=== PATIENT | female | born 1990 | race African-American/Black ===

== ENCOUNTER 2016-07-11 00:43 | Emergency (ER) | payer MEDICAID ==
[~2016-07-11] VITALS: Ht 165.1 cm; Wt 56.7 kg
[2016-07-11 00:57] VITALS: BP 107/60
[2016-07-11 01:33] LABS: Basophils # (auto) 0 uL; Basophils % (auto) 0.1 % (0.0-2.0); Eosinophils # (auto) 0.1 uL; Eosinophils % (auto) 0.8 % (0.0-7.0); Lymphocytes # (auto) 1.7 uL; Lymphocytes % (auto) 12.1 % (10.0-50.0); Mean Corpuscular Hemoglobin 28.9 pg (28.0-32.0); Mean Corpuscular Hgb Conc. 31.5 g/dL (32.0-36.0); Mean Corpuscular Volume 91.8 fL (80.0-100.0); Mean Platelet Volume 10.6 fL (7.4-10.4); Monocytes # (auto) 0.7 uL; Monocytes % (auto) 5.1 % (0.0-12.0); Neutrophils # (auto) 11.7 uL; Neutrophils % (auto) 81.9 % (37.0-80.0); Platelet Count (auto) 282 10^3/uL (140-450); Red Cell Distribution Width 12.9 % (11.6-16.0); White Blood Cell 14.3 10^3/uL (4.4-10.8)
[2016-07-11 01:35] LABS: Urine Bilirubin Negative (Negative); Urine Blood Negative /uL (Negative); Urine Color Yellow (Yellow); Urine Glucose Normal (Normal); Urine Ketone Negative (Negative); Urine Mucus FEW (None Seen); Urine Nitrite Negative (Negative); Urine RBC <1 /hpf (0 - 4); Urine Squamous Epithelial Cell MOD /hpf (<5); Urine Urobilinogen Normal (Negative); Urine pH 6.5 (5.0-8.0)
[2016-07-11 02:05] LABS: Albumin 3.7 g/dL (3.4-5.0); BUN/Creatinine Ratio 15.4; Calcium 8.8 mg/dL (8.5-10.1); Magnesium 2.2 mg/dL (1.6-2.6); Potassium 3.6 mmol/L (3.5-5.1)
[2016-07-11 02:08] LABS: Bilirubin, Total 0.5 mg/dL (0.2-1.0); Total Protein 7.1 g/dL (6.4-8.2)
== END 2016-07-11 04:40 | disposition left against medical advice (07) ==
LOC: ER 00:45
DX: R10.30 Lower abdominal pain, unspecified (principal); Z53.21 Procedure and treatment not carried out due to patient leaving prior to being seen by health care provider
CPT/HCPCS: 36415; 80053; 81001; 83690; 83735; 84702; 85025

== ENCOUNTER 2017-06-30 01:07 | Emergency (ER) | payer MEDICAID ==
[~2017-06-30] VITALS: Ht 162.6 cm; Wt 68.0 kg
[2017-06-30 01:44] VITALS: BP 114/61
[2017-06-30] MEDS ORDERED: LIDOCAINE 1% HCL (LOCAL ANESTH.) INJ 20ML MDV IJ ONE (02:30)
[2017-06-30] MEDS ORDERED: BACITRACIN TOP OINT 1 UD PKG TOP ONE (02:30)
== END 2017-06-30 03:36 | disposition home or self-care (01) ==
LOC: ER 01:08
DX: S51.811A Laceration without foreign body of right forearm, initial encounter (principal); J45.909 Unspecified asthma, uncomplicated; W45.8XXA Other foreign body or object entering through skin, initial encounter; Y93.89 Activity, other specified; Y92.89 Other specified places as the place of occurrence of the external cause; Y99.8 Other external cause status
CPT/HCPCS: 12002; 99283; J2001

== ENCOUNTER 2018-03-07 19:16 | Emergency (ER) | payer MEDICAID ==
[~2018-03-07] VITALS: Ht 165.1 cm; Wt 68.0 kg
[2018-03-07 19:29] VITALS: BP 103/60
[2018-03-07] MEDS ORDERED: ACETAMINOPHEN 500 MG TAB PO ONE (23:45)
== END 2018-03-08 00:07 | disposition home or self-care (01) ==
LOC: ER 19:18
DX: O9A.211 Injury, poisoning and certain other consequences of external causes complicating pregnancy, first trimester (principal); O41.8X10 Other specified disorders of amniotic fluid and membranes, first trimester, not applicable or unspecified; O46.8X1 Other antepartum hemorrhage, first trimester; M62.838 Other muscle spasm; O9A.311 Physical abuse complicating pregnancy, first trimester; Z3A.01 Less than 8 weeks gestation of pregnancy; Y08.89XA Assault by other specified means, initial encounter; Y93.89 Activity, other specified; Y99.8 Other external cause status; Y92.89 Other specified places as the place of occurrence of the external cause
CPT/HCPCS: 36415; 76801; 84702

== ENCOUNTER 2018-04-28 20:38 | Emergency (ER) | payer MEDICAID ==
[~2018-04-28] VITALS: Ht 165.1 cm; Wt 65.8 kg
[2018-04-28 20:47] VITALS: BP 122/68
[2018-04-28 21:33] LABS: Basophils # (auto) 0.2 uL; Basophils % (auto) 1.2 % (0.0-2.0); Eosinophils # (auto) 0.1 uL; Eosinophils % (auto) 0.5 % (0.0-7.0); Hematocrit 42.3 % (36.0-46.0); Lymphocytes # (auto) 1.1 uL; Lymphocytes % (auto) 7.7 % (10.0-50.0); Mean Corpuscular Hemoglobin 29.9 pg (28.0-32.0); Mean Corpuscular Hgb Conc. 33.1 g/dL (32.0-36.0); Mean Corpuscular Volume 90.3 fL (80.0-100.0); Monocytes # (auto) 0.6 uL; Monocytes % (auto) 4.2 % (0.0-12.0); Neutrophils # (auto) 11.8 uL; Neutrophils % (auto) 86.4 % (37.0-80.0); Platelet Count (auto) 268 10^3/uL (140-450); Red Blood Cells 4.68 10^6/uL (4.0-5.20); Red Cell Distribution Width 13.1 % (11.8-14.3); White Blood Cell 13.7 10^3/uL (4.4-10.8)
[2018-04-28 21:46] LABS: Albumin 3.7 g/dL (3.4-5.0); Calcium 9.1 mg/dL (8.5-10.1); Potassium 3.5 mmol/L (3.5-5.1)
[2018-04-28 21:49] LABS: BUN/Creatinine Ratio 12.3; Bilirubin, Total 0.7 mg/dL (0.2-1.0); Total Protein 7.4 g/dL (6.4-8.2)
== END 2018-04-29 01:10 | disposition left against medical advice (07) ==
LOC: EDBD 20:38 → ER 20:50
DX: R11.2 Nausea with vomiting, unspecified (principal); Z53.21 Procedure and treatment not carried out due to patient leaving prior to being seen by health care provider
CPT/HCPCS: 36415; 80053; 85025

== ENCOUNTER 2018-06-08 21:56 | Observation (INO) | payer MEDICAID | END 2018-06-09 01:00 | disposition home or self-care (01) | DRG 566 | LOC: LDRP 21:56 | PROVIDERS: ADMIT Specialist; ATTEND Specialist | DX: O26.892 Other specified pregnancy related conditions, second trimester (principal); R10.9 Unspecified abdominal pain; X58.XXXA Exposure to other specified factors, initial encounter; Y04.0XXA Assault by unarmed brawl or fight, initial encounter; Y92.89 Other specified places as the place of occurrence of the external cause; Y99.8 Other external cause status; Z3A.20 20 weeks gestation of pregnancy | CPT/HCPCS: 59025; 76805; 81002; G0378 ==

== ENCOUNTER 2019-12-02 22:08 | Emergency (ER) | payer MEDICAID ==
[~2019-12-02] VITALS: Ht 165.1 cm; Wt 62.6 kg
[2019-12-02 22:29] VITALS: BP 96/68
[2019-12-02 22:54] LABS: Basophils # (auto) 0 10 ^3/uL (0-0.2); Basophils % (auto) 0.5 % (0.0-2.0); Eosinophils # (auto) 0.1 10 ^3/uL (0-0.8); Eosinophils % (auto) 1.8 % (0.0-7.0); Lymphocytes # (auto) 1.2 10 ^3/uL (0.4-5.4); Lymphocytes % (auto) 23.1 % (10.0-50.0); Mean Corpuscular Hemoglobin 29.6 pg (28.0-32.0); Mean Corpuscular Hgb Conc. 33.2 g/dL (32.0-36.0); Monocytes # (auto) 0.6 10 ^3/uL (0-1.3); Monocytes % (auto) 10.9 % (0.0-12.0); Neutrophils # (auto) 3.2 10 ^3/uL (1.6-8.6); Neutrophils % (auto) 63.7 % (37.0-80.0); Platelet Count (auto) 191 10^3/uL (140-450); Red Blood Cells 4.72 10^6/uL (4.0-5.20); White Blood Cell 5.1 10^3/uL (4.4-10.8)
[2019-12-02 23:05] LABS: Urine Bacteria NONE SEEN /hpf (None Seen); Urine Blood Negative /uL (Negative); Urine Mucus FEW (None Seen); Urine WBC 10 /hpf (0 - 5)
[2019-12-02 23:13] LABS: Albumin 3.8 g/dL (3.4-5.0); Calcium 8.3 mg/dL (8.5-10.1); Magnesium 2.4 mg/dL (1.6-2.6); Potassium 3.2 mmol/L (3.5-5.1)
[2019-12-02 23:16] LABS: BUN/Creatinine Ratio 16.7; Bilirubin, Total 0.3 mg/dL (0.2-1.0); Total Protein 7.2 g/dL (6.4-8.2)
[2019-12-03] MEDS ORDERED: cefTRIAXone SOD 1,000 MG VL IM ONE (00:30)
[2019-12-03] MEDS ORDERED: ONDANSETRON ODT 4 MG TAB PO ONE (00:30)
[2019-12-03] MEDS ORDERED: POTASSIUM CHL 20 Meq TABLET PO ONE (00:30)
[2019-12-03] MEDS ORDERED: ACETAMINOPHEN 325 MG TAB PO ONE (01:00)
== END 2019-12-03 02:02 | disposition home or self-care (01) ==
LOC: ER 22:08
DX: K52.9 Noninfective gastroenteritis and colitis, unspecified (principal); N39.0 Urinary tract infection, site not specified; E87.6 Hypokalemia; J45.909 Unspecified asthma, uncomplicated
CPT/HCPCS: 36415; 70450; 71045; 80053; 81001; 83735; 85025; 96372; 99285; J0696; Q0162

== ENCOUNTER 2021-12-16 00:07 | Emergency (ER) | payer MEDICAID ==
[2021-12-16 00:35] VITALS: BP 114/54
== END 2021-12-16 05:05 | disposition left against medical advice (07) ==
LOC: ER 00:07
DX: S61.211A Laceration without foreign body of left index finger without damage to nail, initial encounter (principal); Z53.21 Procedure and treatment not carried out due to patient leaving prior to being seen by health care provider; W26.8XXA Contact with other sharp object(s), not elsewhere classified, initial encounter; Y93.89 Activity, other specified; Y92.89 Other specified places as the place of occurrence of the external cause; Y99.8 Other external cause status

== ENCOUNTER 2022-07-16 01:38 | Emergency (ER) | payer MEDICAID ==
[~2022-07-16] VITALS: Ht 167.6 cm; Wt 72.5 kg
[2022-07-16 02:00] VITALS: BP 130/81
[2022-07-16] MEDS ORDERED: CYCL-837 PO (02:56)
[2022-07-16] MEDS ORDERED: IBUP600T27 PO (02:56)
== END 2022-07-16 03:52 | disposition home or self-care (01) ==
LOC: EDBD 01:38 → ER 01:38
DX: S01.21XA Laceration without foreign body of nose, initial encounter (principal); S01.82XA Laceration with foreign body of other part of head, initial encounter; J45.909 Unspecified asthma, uncomplicated; Z98.890 Other specified postprocedural states; Z91.018 Allergy to other foods; Y04.0XXA Assault by unarmed brawl or fight, initial encounter; Y93.89 Activity, other specified; Y92.511 Restaurant or cafe as the place of occurrence of the external cause; Y99.8 Other external cause status
CPT/HCPCS: 12011; 70450; 70486; 71250; 72125; 74176

== ENCOUNTER 2024-03-22 23:03 | Emergency (ER) | payer MEDICAID ==
[~2024-03-22] VITALS: Ht 165.1 cm; Wt 81.9 kg
[~2024-03-22 23:03] MED LIST: CYCL-837 PO; IBUP-1454 PO
[2024-03-22 23:18] VITALS: BP 113/67; PULSE 62; RESP 16; O2SAT 97
== END 2024-03-22 23:24 | disposition left against medical advice (07) ==
LOC: ER 23:03
DX: R51.9 Headache, unspecified (principal); R20.0 Anesthesia of skin; M54.2 Cervicalgia; R42 Dizziness and giddiness; Z53.21 Procedure and treatment not carried out due to patient leaving prior to being seen by health care provider
CPT/HCPCS: 93005

== ENCOUNTER 2025-02-27 20:40 | Emergency (ER) | payer MEDICAID ==
[~2025-02-27] VITALS: Ht 165.1 cm; Wt 81.7 kg
[2025-02-27 20:52] VITALS: BP 113/64; PULSE 63; RESP 16; TEMP 99; O2SAT 100
--- NOTE | 2025-02-27 21:23 | ED.PDOC ---
ANIMAL NURSE HPI Comments 34-year-old female who came to ER for vaginal bleeding. Patient is a , approximately 6 weeks . States she started having vaginal bleeding and abdominal cramping yesterday, progressively worsening today. 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[employer]IC History: Ectopic 6 Para 3 Family History Family History: Reviewed,noncontributory to illness Social History Smoker: Non-Smoker Alcohol: Occasionally Drugs: Denies Drug Use Lives In: Home Constitutional: denies: chills, diaphoresis, fatigue, fever, malaise, sweats, weakness, others EENTM: denies: blurred vision, double vision, ear bleeding, ear discharge, ear drainage, ear pain, ear ringing, eye pain, eye redness, hearing loss, mouth pain, mouth swelling, nasal discharge, nose bleeding, nose congestion, nose pain, photophobia, tearing, throat pain, throat swelling, voice changes, others Respiratory: denies: cough, hemoptysis, orthopnea, SOB at rest, shortness of breath, SOB with excertion, stridor, wheezing, others Cardiovascular: denies: chest pain, dizzy spells, diaphoresis, Dyspnea on exertion, edema, irregular heart beat, left arm pain, lightheadedness, palpitations, PND, syncope, others Gastrointestinal: reports: abdominal pain; denies: abdomen distended, blood streaked bowels, constipated, diarrhea, dysphagia, difficulty swallowing, hematemesis, melena, nausea, poor appetite, poor fluid intake, rectal bleeding, rectal pain, vomiting, others Genitourinary: reports: abnormal vagina bleeding; denies: burning, dyspareunia, dysuria, flank pain, frequency, hematuria, incontinence, pain, , vagina discharge, urgency, others Neurological: denies: dizziness, fainting, headache, left sided numbness, left sided weakness, numbness, paresthesia, pre-existing deficit, right sided numbness, right sided weakness, seizure, speech problems, tingling, tremors, weakness, others Musculoskeletal: denies: back pain, gout, joint pain, joint swelling, muscle pain, muscle stiffness, neck pain, others Integumetry: denies: bruises, change in color, change in hair/nails, dryness, laceration, lesions, lumps, rash, wounds, others Allergic/Immunocompromised: denies: Difficulty Healing, Frequent Infections, Hives, Itching, others Hematologic/Lymphatic: denies: anemia, blood clots, easy bleeding, easy bruising, swollen glands, others Endocrine: denies: excessive hunger, excessive sweating, excessive thirst, excessive urination, flushing, intolerance to cold, intolerance to heat, unexplained weight gain, unexplained weight loss, others Psychiatric: denies: anxiety, bipolar disorder, depression, hopeless, panic disorder, schizophrenia, sleepless, suicidal, others Physical Exam General Appearance: No Apparent Distress, Normal HEENT: Normal ENT Inspection, Pharynx Normal, TMs Normal Neck: Full Range of Motion, Non-Tender, Normal, Normal Inspection Respiratory: Chest Non-Tender, Lungs Clear, No Accessory Muscle Use, No Respiratory Distress, Normal Breath Sounds Cardiovascular: No Edema, No JVD, No Murmur, No Gallop, Normal Peripheral Pulses, Regular Rate/Rhythm Breast Exam: Deferred Gastrointestinal: No Organomegaly, Non Tender, No Pulsatile Mass, Normal Bowel Sounds, Soft Genitalia: Deferred Pelvic: Deferred Rectal: Deferred Extremities: No calf tenderness, Normal capillary refill, Normal inspection, Normal range of motion, Non-tender, No pedal edema Musculoskeletal : Apperance: Normal Neurologic: Alert, 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 Was a procedure done?: No Differential Diagnosis ([employer] MECH[employer]IC) Vaginal Bleeding: - Missed, - Threatened, Blood Loss Anemia, Ectopic , Menstrual Bleeding, UTI X-Ray, Labs, Meds, VS Vital Signs Date Time Temp Pulse Resp B/P (MAP) Pulse Ox O2 Delivery O2 Flow Rate FiO2 02/27/25 20:52 99.0 63 16 113/64 100 99.0 Lab Test 02/27/25 21:18 02/27/25 21:09 Range/Units White Blood Count 10.7 4.4-10.8 10^3/uL Red Blood Count 4.57 4.0-5.20 10^6/uL Hemoglobin 13.7 12.2-16.2 g/dL Hematocrit 40.5 36.0-46.0 % Mean Corpuscular Volume 88.6 80.0-100.0 fL Mean Corpuscular Hemoglobin 30.0 28.0-32.0 pg Mean Corpuscular Hemoglobin Concent 33.9 32.0-36.0 g/dL Red Cell Distribution Width 12.9 11.8-14.3 % Platelet Count 298 140-450 10^3/uL Mean Platelet Volume 10.3 6.9-10.8 fL Neutrophils (%) (Auto) 71.9 37.0-80.0 % Lymphocytes (%) (Auto) 17.0 10.0-50.0 % Monocytes (%) (Auto) 8.3 0.0-12.0 % Eosinophils (%) (Auto) 2.3 0.0-7.0 % Basophils (%) (Auto) 0.5 0.0-2.0 % Neutrophils # (Auto) 7.7 1.6-8.6 10 ^3/uL Lymphocytes # (Auto) 1.8 0.4-5.4 10 ^3/uL Monocytes # (Auto) 0.9 0-1.3 10 ^3/uL Eosinophils # (Auto) 0.2 0-0.8 10 ^3/uL Basophils # (Auto) 0.1 0-0.2 10 ^3/uL Nucleated Red Blood Cells 0.0 % Sodium Level 143 136-145 mmol/L Potassium Level 3.5 3.5-5.1 mmol/L Chloride Level 106 98-107 mmol/L Carbon Dioxide Level 28 20-31 mmol/L Anion Gap 9 5-15 Blood Urea Nitrogen 12 9-23 mg/dL Creatinine 0.89 0.550-1.02 mg/dL Glomerular Filtration Rate Calc 88 >90 mL/min BUN/Creatinine Ratio 13.5 10.0-20.0 Serum Glucose 72 L 74-106 mg/dL Calcium Level 9.0 8.7-10.4 mg/dL Total Bilirubin 0.4 0.2-1.0 mg/dL Aspartate Amino Transferase (AST) 14 13-40 U/L Alanine Aminotransferase (ALT) 15 7-40 U/L Alkaline Phosphatase 47 46-116 U/L Total Protein 7.2 5.7-8.2 g/dL Albumin 4.5 3.2-4.8 g/dL Beta HCG, Quantitative 13.3 H 1.5-4.2 mIU/mL Urine Color Yellow Yellow Urine Clarity Clear Clear Urine pH 5.5 5.0-9.0 Urine Specific [place] 1.035 1.001-1.035 Urine Protein Trace H Negative Urine Ketones Negative Negative Urine Blood 3+ H Negative /uL Urine Nitrite Negative Negative Urine Bilirubin Negative Negative Urine Urobilinogen 6 Negative mg/dL Urine Leukocyte Esterase Negative Negative /uL Urine RBC 2 0 - 4 /hpf Urine Microscopic WBC 2 0-5 /HPF Urine Squamous Epithelial Cells Few <5 /hpf Urine Bacteria None seen None Seen /hpf Urine Mucus Few None Seen Urine Glucose Normal Normal mg/dL Time of 1ST Reevaluation: 21:23 Reevaluation 1ST: Unchanged Patient Education/Counseling: Diagnosis, Treatment Family Education/Counseling: Diagnosis, Treatment Departure 1 Departure Time of Disposition: 00:50 Impression: Primary Impression: Vaginal bleeding during Disposition: 07 LEFT AWOL/ELOPED Condition: Fair Discharged With: Self Comments Patient with a history of prior ectopic now with some cramping and vaginal bleeding during . I ordered an ultrasound and lab work. Patient eloped and did not get the ultrasound. Patient does have a risks of a recurrent ectopic . However pain is minimal at this time and abdomen is nontender. Critical Care Note Critical Care Time?: No Stability Stability form required: No Heart Score Heart Score: Heart Score Response (Comments) Value History N/A 0 EKG N/A 0 Age N/A 0 Risk Factors N/A 0 Troponin N/A 0 Total 0 I personally scribed for KANNAN HERNANDEZ MD ([email or web address]) on 02/27/25 at 21:23. Electronically submitted by Chris Weller ([email or web address]). I personally scribed for KANNAN HERNANDEZ MD ([email or web address]) on 02/28/25 at 00:34. Electronically submitted by Chris Weller ([email or web address]). KANNAN HERNANDEZ MD Feb 27, 2025 21:23
[2025-02-27 22:07] LABS: Hematocrit 40.5 % (36.0-46.0); Hemoglobin 13.7 g/dL (12.2-16.2); Mean Corpuscular Hemoglobin 30.0 pg (28.0-32.0); Mean Corpuscular Volume 88.6 fL (80.0-100.0); Nucleated Red Blood Cells % 0.0 %
[2025-02-27 22:23] LABS: Alanine Aminotransferase 15 U/L (7-40); Albumin 4.5 g/dL (3.2-4.8); Alkaline Phosphatase 47 U/L (46-116); Anion Gap 9 (5-15); BUN/Creatinine Ratio 13.5 (10.0-20.0); Blood Urea Nitrogen 12 mg/dL (9-23); Calcium 9.0 mg/dL (8.7-10.4); Carbon Dioxide 28 mmol/L (20-31); Chloride 106 mmol/L (98-107); Potassium 3.5 mmol/L (3.5-5.1); Sodium 143 mmol/L (136-145); Total Protein 7.2 g/dL (5.7-8.2)
[2025-02-27 22:24] LABS: Bilirubin, Total 0.4 mg/dL (0.2-1.0); Glucose 72 mg/dL (74-106)
[2025-02-27 22:55] LABS: Urine Protein, UAD TRACE (Negative)
== END 2025-02-28 00:49 | disposition left against medical advice (07) ==
LOC: ER 20:40
DX: O09.11 Supervision of pregnancy with history of ectopic pregnancy, first trimester (principal); O20.9 Hemorrhage in early pregnancy, unspecified; Z3A.01 Less than 8 weeks gestation of pregnancy; O99.511 Diseases of the respiratory system complicating pregnancy, first trimester; J45.909 Unspecified asthma, uncomplicated
CPT/HCPCS: 36415; 80053; 81001; 84702; 85025; 86901